=== PATIENT | female | born 1970 | race Caucasian/White ===

== ENCOUNTER 2021-12-13 21:23 | Inpatient (IN) | payer OTHER ==
[2021-12-13] MEDS ORDERED: ONDANSETRON 4 MG/2 ML VIAL IVP STA (22:42)
[2021-12-13] MEDS ORDERED: KETOROLAC 15 MG/ML 1 ML VIAL IVP STA (22:42)
[2021-12-13] MEDS ORDERED: diphenhydrAMINE 50 MG/ML 1 ML VIAL IVP STA (22:43)
[2021-12-13] MEDS ORDERED: SODIUM CHLORIDE 0.9% 1,000 ML IV STA (22:43)
[2021-12-13 23:08] LABS: Basophils % (A) 1 %; Eosinophils # (A) 0.3 k/uL (0-0.7); Eosinophils % (A) 5 %; HCT 37.5 % (34.0-46.0); HGB 11.3 gm/dL (11.4-16.0); Hypochromasia Moderate; Lymphocytes # (A) 1.4 k/uL (1.0-4.8); Lymphocytes % (A) 25 %; MCH 21.3 pg (25.0-35.0); MCHC 30.2 g/dL (31.0-37.0); MCV 70.4 fL (80.0-100.0); Mean Platelet Volume 6.8; Microcytosis Moderate; Monocytes # (A) 0.3 k/uL (0-1.0); Monocytes % (A) 6 %; Neutrophils # (A) 3.3 k/uL (1.3-7.7); Neutrophils % (A) 61 %; Platelet Count 249 k/uL (150-450); RBC 5.33 m/uL (3.80-5.40); RDW 15.5 % (11.5-15.5); WBC 5.5 k/uL (3.8-10.6)
--- NOTE | 2021-12-13 23:22 | XR ---
EXAMINATION TYPE: XR KUB DATE OF EXAM: 12/13/2021 COMPARISON: NONE HISTORY: Flank pain TECHNIQUE: 2 views FINDINGS: 2 views upright show no sign of intestinal obstruction or pneumoperitoneum. Fecal pattern i s normal. Lung bases are clear. There are no pathologic calcifications or kidneys. IMPRESSION: Nonacute abdomen.
[2021-12-13 23:47] LABS: Albumin 4.3 g/dL (3.5-5.0); Calcium 8.8 mg/dL (8.4-10.2); Total Bilirubin 0.7 mg/dL (0.2-1.3); Total Protein 7.7 g/dL (6.3-8.2)
[2021-12-13 23:53] LABS: Appearance,Urine Turbid (Clear); Bacteria,Urine Many /hpf; Bilirubin,Urine Negative (Negative); Blood,Urine Large (Negative); Color,Urine Yellow; Glucose,Urine (UA) Negative (Negative); Hyaline Casts,Urine 15 /lpf (0-2); Ketones,Urine Trace (Negative); Leukocyte Esterase,Urine Large (Negative); Mucus,Urine Many /hpf; Nitrite,Urine Negative (Negative); PH, Urine 5.5 (5.0-8.0); Protein,Urine 1+ (Negative); RBC,Urine 32 /hpf (0-5); Specific Gravity,Urine 1.034 (1.001-1.035); Squamous Epithelial Cell,Urine 22 /hpf (0-4); WBC,Urine 112 /hpf (0-5)
[2021-12-13 23:56] LABS: Amphetamine Screen,Urine Detected (NotDetected); Barbiturate Screen,Urine Not Detected (NotDetected); Benzodiazepines Screen,Urine Not Detected (NotDetected); Cocaine Screen,Urine Not Detected (NotDetected); Methadone Screen, Urine Not Detected (NotDetected); Opiate Screen,Urine Not Detected (NotDetected); Oxycodone Screen, Urine Not Detected (NotDetected); Phencyclidine Screen,Urine Not Detected (NotDetected); Tricyclic Antidepressant,Urine Not Detected (NotDetected); Urn Cannabinoid Scrn Not Detected (NotDetected)
--- NOTE | 2021-12-14 00:18 | US ---
EXAMINATION TYPE: US kidneys/renal and bladder DATE OF EXAM: 12/13/2021 COMPARISON: XR KUB 12/13/21 CLINICAL HISTORY: evaluate for hydronephrosis. Flank pain EXAM MEASUREMENTS: Right Kidney: 10.4 x 5.3 x 4.6 cm Left Kidney: 10.5 x 5.2 x 4.3 cm Right Kidney: Limited visualization; appears wnl Left Kidney: Limited visualization; appears wnl Bladder: Bladder area noted IMPRESSION: No evidence of renal mass or obstruction. No perinephric fluid. Urinary bladder not well evaluated. Bladder was apparently empty during the exam.
[2021-12-14 00:19] LABS: Potassium 4.3 mmol/L (3.5-5.1)
[2021-12-14] MEDS ORDERED: MORPHINE SULFATE 4 MG/ML SYRINGE IVP STA (00:24)
[2021-12-14] MEDS ORDERED: SODIUM CHLORIDE 0.9% 1,000 ML IV STA (00:46)
--- NOTE | 2021-12-14 00:46 | ED ---
General Adult HPI - General Chief complaint: Psychiatric Symptoms Stated complaint: Kidney Stones, Mental health Time Seen by Provider: 12/13/21 22:29 Source: patient, RN notes reviewed, old records reviewed Mode of arrival: ambulatory Limitations: no limitations - History of Present Illness Initial comments: Patient is a 51-year-old female presents emergency Department for kidney stones as well as mental health evaluation. Patient states she is a known history of kidney stones. Is complaining of left-sided flank pain. Complaining of darkened urine. Denies any chest pain, shortness of breath. Endorses occasional nausea. Denies any emesis. Denies any diarrhea or constipation. Denies being . States she does have a history of kidney stones in the past. Patient is also complaining of suicidal ideations. She states she has been recently made homeless. Has been having thoughts form to kill herself. Denies any homicidal ideations, attempts, plans. Denies any suicidal attempts, plans. Denies any visual or auditory hallucinations. Does have a psychiatric history and states she is compliant with her medications. [place] and has little support structure locally. Is requesting to speak with psychiatry. - Related Data Allergies Allergy/AdvReac Type Severity Reaction Status Date / Time codeine Allergy Rash/Hives Verified 12/13/21 21:30 Review of Systems ROS Statement: Those systems with pertinent positive or pertinent negative responses have been documented in the HPI. Review of Systems: CONST: Denies fever EYES: Denies blurry vision ENT: Denies nasal congestion C/V: Denies Chest pain RESP: Denies shortness of breath GI: Endorses abdominal pain : Denies dysuria SKIN: Denies rash. MSK: Denies joint pain. NEURO: Denies headache ROS Other: All systems not noted in ROS Statement are negative. Past Medical History Additional Past Medical History / Comment(s): kidney stones History of Any Multi-Drug Resistant Organisms: None Reported Past Surgical History: No Surgical Hx Reported Past Psychological History: Depression Smoking Status: Never smoker Past Alcohol Use History: None Reported Past Drug Use History: Methamphetamine General Exam - General Exam Comments Initial Comments: General: Appears in no acute distress. HEAD: Normal with no signs of head trauma. EYES: PERRLA, EOMI, conjunctiva normal, no discharge. ENT: Hearing grossly intact, normal oropharynx. RESPIRATORY: Clear breath sounds bilaterally. No wheezes, rales, or rhonchi. C/V: Regular rate and rhythm. S1 and S2 auscultated, no edema, peripheral pulses 2+ and intact throughout ABD: soft, nondistended. patient's mother tender to palpation in the left flank. no cva tenderness to percussion. no rebound tenderness. no peritoneal signs. no guarding. EXT: Normal range of motion, no obvious deformity SKIN: No rashes or lesions observed on exposed skin. NEURO: Alert and oriented 4. Limitations: no limitations Course Vital Signs 12/13/21 12/14/21 21:25 00:21 Temperature 98.2 F Pulse Rate 109 H 86 Respiratory 20 16 Rate Blood Pressure 171/111 143/82 O2 Sat by Pulse 100 98 Oximetry Medical Decision Making - Medical Decision Making Based on the patient's presentation and physical exam, I'm concerned for was likely to be kidney stones that she does have a history of these. We will obtain abdominal laboratory studies. Due to her suicidal ideations, she'll be placed in green scrubs, suicide precautions as well as that order were placed. BAT was obtained and was found to be 0. UDS is ordered. She'll be symptomatically treat with a GI cocktail as well as IV fluids. Patient was in agreement with this plan. We'll obtain an ultrasound as well as abdominal x- ray. Abdominal x-ray reveals no acute process. Ultrasound of the kidneys as well as bladder revealed a recently in the bladder. No signs of hydronephrosis or obstruction, no perinephric fluid. Laboratory studies are remarkable for a mild microcytic anemia with hemoglobin 11.3. Creatinine is 0.94. Patient is not . UDS is positive for amphetamines. Urinalysis is somewhat cont aminated, however does revealed turbid urine with large amount of blood which is likely secondary to kidney stones that may be actively passing. There is leukocytosis as well with many bacteria. On reevaluation, patient is continuing to have abdominal pain. I signed this is likely secondary to her kidney stones. She did admit that she was seen earlier today at a different emergency department. They did CT her abdomen then, and she states that she was told "there are multiple kidney stones in both my kidneys" and that "there is nothing they can do about them." She has required lithotripsy in the past. I expect her that due to the findings on her urinalysis, as well as her history, I do believe the safest option is admission to observation, where she can receive IV analgesia as well as IV fluids and antibiotics. Psychiatry can evaluate the patient on inpatient basis. She was in agreement with this plan. I spoke with the admitting team under Dr. Johnson who accepted the patient. Patient was therefore admitted in stable condition. Suicide precautions and sitter were ordered.IV fluids will be continued. Patient was started on IV Rocephin. - Lab Data Result diagrams: 12/13/21 22:55 12/13/21 22:55 Lab Results 12/13/21 12/13/21 12/13/21 Range/Units 22:55 22:55 22:55 WBC 5.5 (3.8-10.6) k/uL RBC 5.33 (3.80-5.40) m/uL Hgb 11.3 L (11.4-16.0) gm/dL Hct 37.5 (34.0-46.0) % MCV 70.4 L (80.0-100.0) fL MCH 21.3 L (25.0-35.0) pg MCHC 30.2 L (31.0-37.0) g/dL RDW 15.5 (11.5-15.5) % Plt Count 249 (150-450) k/uL MPV 6.8 Neutrophils % 61 % Lymphocytes % 25 % Monocytes % 6 % Eosinophils % 5 % Basophils % 1 % Neutrophils # 3.3 (1.3-7.7) k/uL Lymphocytes # 1.4 (1.0-4.8) k/uL Monocytes # 0.3 (0-1.0) k/uL Eosinophils # 0.3 (0-0.7) k/uL Basophils # 0.0 (0-0.2) k/uL Hypochromasia Moderate Microcytosis Moderate Sodium (137-145) mmol/L Potassium (3.5-5.1) mmol/L Chloride (98-107) mmol/L Carbon Dioxide (22-30) mmol/L Anion Gap mmol/L BUN (7-17) mg/dL Creatinine (0.52-1.04) mg/dL Est GFR (CKD-EPI)AfAm (>60 ml/min/1.73 sqM) Est GFR (CKD-EPI)NonAf (>60 ml/min/1.73 sqM) Glucose (74-99) mg/dL Calcium (8.4-10.2) mg/dL Total Bilirubin (0.2-1.3) mg/dL AST (14-36) U/L ALT (4-34) U/L Alkaline Phosphatase (38-126) U/L Total Protein (6.3-8.2) g/dL Albumin (3.5-5.0) g/dL Amylase (30-110) U/L Lipase (23-300) U/L HCG, Qual Urine Color Yellow Urine Appearance Turbid H (Clear) Urine pH 5.5 (5.0-8.0) Ur Specific [place] 1.034 (1.001-1.035) Urine Protein 1+ H (Negative) Urine Glucose (UA) Negative (Negative) Urine Ketones Trace H (Negative) Urine Blood Large H (Negative) Urine Nitrite Negative (Negative) Urine Bilirubin Negative (Negative) Urine Urobilinogen 3.0 (<2.0) mg/dL Ur Leukocyte Esterase Large H (Negative) Urine RBC 32 H (0-5) /hpf Urine WBC 112 H (0-5) /hpf Ur Squamous Epith Cells 22 H (0-4) /hpf Urine Bacteria Many H (None) /hpf Hyaline Casts 15 H (0-2) /lpf Urine Mucus Many H (None) /hpf Urine Opiates Screen Not Detected (NotDetected) Ur Oxycodone Screen Not Detected (NotDetected) Urine Methadone Screen Not Detected (NotDetected) Ur Propoxyphene Screen Not Detected (NotDetected) Ur Barbiturates Screen Not Detected (NotDetected) U Tricyclic Antidepress Not Detected (NotDetected) Ur Phencyclidine Scrn Not Detected (NotDetected) Ur Amphetamines Screen Detected H (NotDetected) U Methamphetamines Scrn Detected H (NotDetected) U Benzodiazepines Scrn Not Detected (NotDetected) Urine Cocaine Screen Not Detected (NotDetected) U Marijuana (THC) Screen Not Detected (NotDetected) 12/13/21 12/13/21 Range/Units 22:55 23:07 WBC (3.8-10.6) k/uL RBC (3.80-5.40) m/uL Hgb (11.4-16.0) gm/dL Hct (34.0-46.0) % MCV (80.0-100.0) fL MCH (25.0-35.0) pg MCHC (31.0-37.0) g/dL RDW (11.5-15.5) % Plt Count (150-450) k/uL MPV Neutrophils % % Lymphocytes % % Monocytes % % Eosinophils % % Basophils % % Neutrophils # (1.3-7.7) k/uL Lymphocytes # (1.0-4.8) k/uL Monocytes # (0-1.0) k/uL Eosinophils # (0-0.7) k/uL Basophils # (0-0.2) k/uL Hypochromasia Microcytosis Sodium 139 (137-145) mmol/L Potassium 4.3 (3.5-5.1) mmol/L Chloride 106 (98-107) mmol/L Carbon Dioxide 23 (22-30) mmol/L Anion Gap 10 mmol/L BUN 19 H (7-17) mg/dL Creatinine 0.94 (0.52-1.04) mg/dL Est GFR (CKD-EPI)AfAm 81 (>60 ml/min/1.73 sqM) Est GFR (CKD-EPI)NonAf 70 (>60 ml/min/1.73 sqM) Glucose 124 H (74-99) mg/dL Calcium 8.8 (8.4-10.2) mg/dL Total Bilirubin 0.7 (0.2-1.3) mg/dL AST 35 (14-36) U/L ALT 25 (4-34) U/L Alkaline Phosphatase 105 (38-126) U/L Total Protein 7.7 (6.3-8.2) g/dL Albumin 4.3 (3.5-5.0) g/dL Amylase 56 (30-110) U/L Lipase 85 (23-300) U/L HCG, Qual Not Detected Urine Color Urine Appearance (Clear) Urine pH (5.0-8.0) Ur Specific [place] (1.001-1.035) Urine Protein (Negative) Urine Glucose (UA) (Negative) Urine Ketones (Negative) Urine Blood (Negative) Urine Nitrite (Negative) Urine Bilirubin (Negative) Urine Urobilinogen (<2.0) mg/dL Ur Leukocyte Esterase (Negative) Urine RBC (0-5) /hpf Urine WBC (0-5) /hpf Ur Squamous Epith Cells (0-4) /hpf Urine Bacteria (None) /hpf Hyaline Casts (0-2) /lpf Urine Mucus (None) /hpf Urine Opiates Screen (NotDetected) Ur Oxycodone Screen (NotDetected) Urine Methadone Screen (NotDetected) Ur Propoxyphene Screen (NotDetected) Ur Barbiturates Screen (NotDetected) U Tricyclic Antidepress (NotDetected) Ur Phencyclidine Scrn (NotDetected) Ur Amphetamines Screen (NotDetected) U Methamphetamines Scrn (NotDetected) U Benzodiazepines Scrn (NotDetected) Urine Cocaine Screen (NotDetected) U Marijuana (THC) Screen (NotDetected) Disposition Clinical Impression: Kidney stones, UTI (urinary tract infection), Abdominal pain, Suicidal ideations, Encounter for psychological evaluation Disposition: ADMITTED IP TO THIS [facility] Condition: Stable Is patient prescribed a controlled substance at d/c from ED?: No Referrals: None,Stated [Primary Care Provider] - 1-2 days
[2021-12-14] MEDS ORDERED: NALOXONE 0.4 MG/ML 1 ML VIAL IV PRN (00:49)
--- NOTE | 2021-12-14 02:32 | P.HPIM ---
History of Present Illness H&P Date: 12/14/21 Chief Complaint: Severe left flank pain 51-year-old female with history of kidney stones Patient comes in complaining of severe bilateral flank pain worse on the left side she has history of kidney stones a few days ago she was diagnosed with new bilateral kidney stones with no obstruction no obstructive uropathy. She reports hematuria denies any fevers or chills reports very sharp severe pain 10 out of 10 over the left flank radiating to the groin patient also claims that she is homeless she moved recently from [place] to stay with friends who has kicked her out since then she's been homeless with poor access to care doesn't take any medications she does have history of depression and anxiety and PTSD however she's been off medications for a while. Otherwise she denies any tobacco smoking or heavy alcohol use. She admits to methamphetamine last was a few days ago Patient went to a different facility a few days ago [facility] where imaging was done confirmed bilateral kidney stones no obstructive uropathy in the ED blood work showed microcytic anemia. Urine analysis was a contaminated sample Otherwise patient denies any nausea vomiting denies any chest pain or trouble breathing She was getting very frustrated with her quality of life and today presented to the ED complaining of depression and suicidal ideation Review of Systems Pertinent positives as noted in HPI. All other systems were reviewed and are negative Past Medical History Additional Past Medical History / Comment(s): kidney stones History of Any Multi-Drug Resistant Organisms: None Reported Past Surgical History: No Surgical Hx Reported Past Psychological History: Depression Smoking Status: Never smoker Past Alcohol Use History: None Reported Past Drug Use History: Methamphetamine Medications and Allergies Allergies Allergy/AdvReac Type Severity Reaction Status Date / Time codeine Allergy Rash/Hives Verified 12/13/21 21:30 Physical Exam Vitals: Vital Signs Temp Pulse Resp BP Pulse Ox 12/14/21 00:21 86 16 143/82 98 12/13/21 21:25 98.2 F 109 H 20 171/111 100 Intake and Output 12/13/21 12/13/21 12/14/21 14:59 22:59 06:59 Other: Weight 90.718 kg Constitutional: No acute distress, conversant, pleasant Eyes: Anicteric sclerae, moist conjunctiva, Pupils equal round reactive to light ENMT: NC/AT Oropharynx clear, no erythema, or exudates Neck: Supple, no masses, or JVD No carotid bruits No thyromegaly Lungs: Clear to auscultation Clear to percussion Normal respiratory effort, no accessory muscle use Cardiovascular: Heart regular in rate and rhythm, No murmurs, gallops, or rubs No peripheral edema Abdominal: Soft, tenderness to tapping of the left costovertebral angle Nontender, no guarding, rebound or rigidity Abdomen moving with respiration Normoactive bowel sounds No hepatomegaly, No splenomegaly No palpable mass No abdominal wall hernia noted Skin: Normal temperature, tone, texture, turgor No induration No subcutaneous nodules No rash, lesions No ulcers Extremities: No digital cyanosis No clubbing Pedal pulses intact and symmetrical Radial pulses intact and symmetrical No calf tenderness Psychiatric: Alert and oriented to person, place and time Neuro Muscles Strength 5/5 in all 4 extremities Sensation to light touch grossly present throughout Cranial nerves II-XII grossly intact No focal sensory deficits Lymphatics: no palpable cervical or supraclavicular , or inguinal lymph nodes Results CBC & Chem 7: 12/13/21 22:55 12/13/21 22:55 Labs: Abnormal Lab Results - Last 24 Hours (Table) 12/13/21 12/13/21 12/13/21 Range/Units 22:55 22:55 22:55 Hgb 11.3 L (11.4-16.0) gm/dL MCV 70.4 L (80.0-100.0) fL MCH 21.3 L (25.0-35.0) pg MCHC 30.2 L (31.0-37.0) g/dL BUN (7-17) mg/dL Glucose (74-99) mg/dL Urine Appearance Turbid H (Clear) Urine Protein 1+ H (Negative) Urine Ketones Trace H (Negative) Urine Blood Large H (Negative) Ur Leukocyte Esterase Large H (Negative) Urine RBC 32 H (0-5) /hpf Urine WBC 112 H (0-5) /hpf Ur Squamous Epith Cells 22 H (0-4) /hpf Urine Bacteria Many H (None) /hpf Hyaline Casts 15 H (0-2) /lpf Urine Mucus Many H (None) /hpf Ur Amphetamines Screen Detected H (NotDetected) U Methamphetamines Scrn Detected H (NotDetected) 04/04/22 Range/Units 22:55 Hgb (11.4-16.0) gm/dL MCV (80.0-100.0) fL MCH (25.0-35.0) pg MCHC (31.0-37.0) g/dL BUN 19 H (7-17) mg/dL Glucose 124 H (74-99) mg/dL Urine Appearance (Clear) Urine Protein (Negative) Urine Ketones (Negative) Urine Blood (Negative) Ur Leukocyte Esterase (Negative) Urine RBC (0-5) /hpf Urine WBC (0-5) /hpf Ur Squamous Epith Cells (0-4) /hpf Urine Bacteria (None) /hpf Hyaline Casts (0-2) /lpf Urine Mucus (None) /hpf Ur Amphetamines Screen (NotDetected) U Methamphetamines Scrn (NotDetected) Assessment and Plan Assessment: Acute abdominal pain secondary to left renal stones Urine straining Pain control IV fluid hydration with normal saline Urology consult Pain control with opiates and NSAIDs UA reviewed contaminated sample follow-up cultures Computed tomography scan done at another facility showed bilateral kidney stones with no obstructive uropathy Follow-up renal function Microcytic anemia Patient denies any GI bleeding Admits to occasional hematuria Continue to monitor hemoglobin Iron studies Depression and suicidal ideation Suicide precautions Psych consultation and evaluation Patient currently off medications Psych evaluation DVT prophylaxis mechanical Full code Anticipated length of stay less than 2 midnights
[2021-12-14] MEDS: HEPARIN SODIUM,PORCINE/PF 5,000 UNIT/0.5 ML SYRINGE SQ SCH ×2 (08:06→18:06)
[2021-12-14] MEDS: MORPHINE SULFATE 4 MG/ML SYRINGE IVP PRN ×2 (08:07→14:21)
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
[2021-12-14] MEDS: ONDANSETRON 4 MG/2 ML VIAL IVP PRN (14:20)
[2021-12-14] MEDS ORDERED: ACETAMINOPHEN TAB 325 MG TAB PO PRN (19:50)
[2021-12-14] MEDS: QUEtiapine 50 MG TAB PO SCH (20:00)
[2021-12-15] MEDS: HEPARIN SODIUM,PORCINE/PF 5,000 UNIT/0.5 ML SYRINGE SQ SCH ×3 (00:30→16:22)
[2021-12-15] MEDS: CITALOPRAM HYDROBROMIDE 10 MG TAB PO SCH (09:10)
[2021-12-15 10:22] LABS: HCT 35.3 % (37.2-46.3); HGB 10.2 g/dL (12.0-15.0); MCH 20.3 pg (27.0-32.0); MCHC 28.9 g/dL (32.0-37.0); MCV 70.2 fL (80.0-97.0); Mean Platelet Volume 10.8 fL (9.5-12.2); NRBC Per 100 WBC 0 /100 WBCS (0.0-0.0); Platelet Count 264 X 10*3/uL (140-440); RBC 5.03 X 10*6/uL (4.10-5.20); RDW 16.5 % (11.5-14.5)
[2021-12-15 10:30] LABS: African American GFR (CKD) 85.2 (60.0-200.0); Albumin 3.8 g/dL (3.8-4.9); Albumin/Globulin Ratio 1.46 (1.60-3.17); Anion Gap 10.4 mmol/L (10.00-18.00); BUN/Creat Ratio 15.56 Ratio (12.00-20.00); Carbon Dioxide 25.6 mmol/L (20.0-27.5); Globulin 2.6 g/dL (1.6-3.3); Non-African American GFR(CKD) 73.5 (60.0-200.0); Potassium 4.6 mmol/L (3.5-5.5); Total Bilirubin 0.4 mg/dL (0.30-1.20); Total Protein 6.4 g/dL (6.2-8.2)
[2021-12-15 12:03] LABS: Basophils # (A) 0.03 X 10*3/uL (0.00-0.10); Basophils % (A) 0.7 %; Eosinophils % (A) 4.8 %; Immature Grans, Automated 0.2 %; Lymphocytes % (A) 45.2 %; Microcytosis (M) 2+; Monocytes # (A) 0.39 X 10*3/uL (0.20-1.00); Monocytes % (A) 9.3 %; Neutrophils # (A) 1.67 X 10*3/uL (1.80-7.70); Neutrophils % (A) 39.8 %
--- NOTE | 2021-12-15 13:11 | P.PN ---
Progress Note - Text Progress Note Date: 12/15/21 Interval History: Patient was seen resting in bed and was directable and agreeable to speak with this provider in her room. Present in the room as the patient's sitter. Currently, the patient reports that she just feels tired. She continues to report elevated depression with symptoms of low energy, low motivation, hopelessness, and suicidal ideation. She continues to have a desire to hurt herself. She denies any homicidal ideation, intention, and/or plan. She denies any auditory or visual hallucinations but does admit to a negative internal dialogue. She has been adherent with her medications but reports that the Seroquel is making her feel little bit tired. She denies any issues regarding her sleep or her appetite. Mental Status Exam: General Appearance: Patient appears to be stated age is alert, directable, and cooperative. She is dressed in hospital gown. Behavior: Patient is calmly seated without any agitated behavior. Speech: Patient's speech is fluent and nonpressured. Mood/Affect: Mood is feeling depressed. Affect is congruent, constricted, and withdrawn. Suicidality/Homicidality: Patient endorses suicidal ideation however denies any homicidal ideation, intention, and/or plan. Perceptions: Patient denies any visual hallucinations and denies any auditory hallucinations Though content/process: There is no evidence of any delusional thought content and thought process is linear but dysphoric. Memory and concentration: AOX3, grossly intact for the purposes of this session Judgment and insight: Improving mildly Vital Signs Temp 97.9 F 12/15/21 04:09 Pulse 71 12/15/21 04:09 Resp 18 12/15/21 04:09 BP 101/64 12/15/21 04:09 Pulse Ox 94 L 12/15/21 04:09 Intake & Output 12/14/21 12/15/21 12/15/21 18:59 06:59 18:59 Intake Total 200 650 Balance 200 650 Weight 90.718 kg Intake: Intake, IV Titration 50 Amount cefTRIAXone 1 gm In 50 Sodium Chloride 0.9% 50 ml @ 100 mls/hr IVPB Q24H [facility] Rx#:[id number] Oral 200 600 Other: Voiding Method Toilet Toilet # Voids 2 Laboratory Results - Last 24 Hours 12/15/21 12/15/21 06:55 06:55 WBC 4.20 L RBC 5.03 Hgb 10.2 L Hct 35.3 L MCV 70.2 L MCH 20.3 L MCHC 28.9 L RDW 16.5 H Plt Count 264 Plt Count Comment Adequate MPV 10.8 Immature Gran % (Auto) 0.2 Absolute Nucleated RBC 0 Neutrophils % 39.8 Lymphocytes % 45.2 Monocytes % 9.3 Eosinophils % 4.8 Basophils % 0.7 Immature Gran # 0.01 Neutrophils # 1.67 L Lymphocytes # 1.90 Monocytes # 0.39 Eosinophils # 0.20 Basophils # 0.03 NRBC/100 WBC Diff 0 Microcytosis (manual) 2+ Sodium 143 Potassium 4.6 Chloride 107 Carbon Dioxide 25.6 Anion Gap 10.40 BUN 14.0 Creatinine 0.9 Est GFR (CKD-EPI)AfAm 85.2 Est GFR (CKD-EPI)NonAf 73.5 BUN/Creatinine Ratio 15.56 Glucose 100 Calcium 9.0 Total Bilirubin 0.40 AST 28 ALT 36 Alkaline Phosphatase 125 Total Protein 6.4 Albumin 3.8 Globulin 2.6 Albumin/Globulin Ratio 1.46 L Assessment Hematuria Major depressive disorder, recurrent, severe Posttraumatic stress disorder Methamphetamine abuse Plan: -Continue your medical management -At this time patient DOES meet criteria for inpatient psychiatric admission. -Would recommend the following medication changes/additions: Continue Seroquel 50 mg by mouth at bedtime for mood augmentation and insomnia Continue Celexa 10 mg by mouth daily for depression/anxiety -Continue 1:1 sitter for safety -Cannot leave AMA at this time. Patient will need a petition and certification if attempting to leave AMA. -Psychiatry will sign off at this time. We will further evaluate and treat the patient when she is admitted to the psychiatric unit. Please consult us or call us with any questions or concerns. -When medically stable, patient is eligible for transfer to a psych bed when available.
--- NOTE | 2021-12-15 13:34 | P.PN ---
Subjective Patient was evaluated bedside today denies any new symptomatology. Pain is controlled with when necessary medications states that she has been sleeping. One-to-one sitter present at bedside. Case discussed with RN. Pending evaluation by urology. Objective - Vital Signs Vital signs: Vital Signs Temp 97.9 F 12/15/21 04:09 Pulse 71 12/15/21 04:09 Resp 18 12/15/21 04:09 BP 101/64 12/15/21 04:09 Pulse Ox 94 L 12/15/21 04:09 Intake & Output 12/14/21 12/15/21 12/15/21 18:59 06:59 18:59 Intake Total 200 650 Balance 200 650 Weight 90.718 kg Intake: Intake, IV Titration 50 Amount cefTRIAXone 1 gm In 50 Sodium Chloride 0.9% 50 ml @ 100 mls/hr IVPB Q24H [facility] Rx#:[id number] Oral 200 600 Other: Voiding Method Toilet Toilet # Voids 2 - Exam Constitutional: No acute distress, conversant, pleasant Eyes: Anicteric sclerae, moist conjunctiva, Pupils equal round reactive to light ENMT: NC/AT Oropharynx clear, no erythema, or exudates Neck: Supple, no masses, or JVD No carotid bruits No thyromegaly Lungs: Clear to auscultation Clear to percussion Normal respiratory effort, no accessory muscle use Cardiovascular: Heart regular in rate and rhythm, No murmurs, gallops, or rubs No peripheral edema Abdominal: Soft, tenderness to tapping of the left costovertebral angle Nontender, no guarding, rebound or rigidity Abdomen moving with respiration Normoactive bowel sounds No hepatomegaly, No splenomegaly No palpable mass No abdominal wall hernia noted Skin: Normal temperature, tone, texture, turgor No induration No subcutaneous nodules No rash, lesions No ulcers Extremities: No digital cyanosis No clubbing Pedal pulses intact and symmetrical Radial pulses intact and symmetrical No calf tenderness Psychiatric: Alert and oriented to person, place and time Neuro Muscles Strength 5/5 in all 4 extremities Sensation to light touch grossly present throughout Cranial nerves II-XII grossly intact No focal sensory deficits Lymphatics: no palpable cervical or supraclavicular , or inguinal lymph nodes - Labs CBC & Chem 7: 12/15/21 06:55 12/15/21 06:55 Labs: Abnormal Lab Results - Last 24 Hours (Table) 12/15/21 12/15/21 Range/Units 06:55 06:55 WBC 4.20 L (4.50-10.00) X 10*3/uL Hgb 10.2 L (12.0-15.0) g/dL Hct 35.3 L (37.2-46.3) % MCV 70.2 L (80.0-97.0) fL MCH 20.3 L (27.0-32.0) pg MCHC 28.9 L (32.0-37.0) g/dL RDW 16.5 H (11.5-14.5) % Neutrophils # 1.67 L (1.80-7.70) X 10*3/uL Albumin/Globulin Ratio 1.46 L (1.60-3.17) g/dL Microbiology - Last 24 Hours (Table) 12/13/21 22:55 Urine Culture - Final Urine,Voided Assessment and Plan Assessment: Assessment: #1 intractable abdominal pain secondary to nephrolithiasis #2 active suicidal ideation/depression #3 microcytic anemia #4 urinary tract infection Plan: -Admit to medicine for close monitoring -Suicidal precautions/one-to-one sitter -Psychiatry on board recommending inpatient psychiatric unit once patient is medically stable -Pending evaluation by urology -Urine culture reviewed continue with IV Rocephin -DVT prophylaxis Disposition despite discharge once evaluated by urology and cleared. Patient will be discharged to inpatient psych. Patient cannot leave AMA as per psych.
--- NOTE | 2021-12-15 14:09 | P.GSCN ---
History of Present Illness Consult date: 12/15/21 Reason for Consult: Left-sided kidney stones History of present illness: This is a 51-year-old female with history of recurrent kidney stones area she initially presented to [facility] with bilateral flank pain, CT was obtained at that time showed bilateral nonobstructing stone, and review of imaging there appears to be also a 6 mm stone at the left UVJ. She presented back to the hospital with left-sided flank pain. Ultrasound showed no hydronephrosis, but she's been having persistent pain since hospital admission.. Previous history of stone treated with ureteroscopy with holmium laser. Denies any dysuria, , nausea or vomiting. But indicated she's been having gross hematuria with the pain. Urine culture is a contaminant, but she's been on antibiotics since hospital admission. Review of Systems - Constitutional Denies chills, Denies fever - Cardiovascular Denies chest pain, Denies shortness of breath - Respiratory Denies cough, Denies 7 - Gastrointestinal Reports abdominal pain - Genitourinary Genitourinary: Reports flank pain, Reports hematuria, Denies dysuria - Neurological Denies headaches, Denies syncope - Psychiatric Reports anxiety Past Medical History Past Medical History: Hypertension, Renal Disease Additional Past Medical History / Comment(s): Past kidney stones, UTIs, gastric ulcer/hematemesis as a child, low back pain worse with standing. History of Any Multi-Drug Resistant Organisms: None Reported Past Surgical History: Orthopedic Surgery, Tubal Ligation Additional Past Surgical History / Comment(s): Surgery for kidney stones, L knee arthroscopic surgery Past Anesthesia/Blood Transfusion Reactions: No Reported Reaction Smoking Status: Never smoker - Past Family History Mother Family Medical History: COPD Additional Family Medical History / Comment(s): Mother is living, pt does not speak much to her. Father Additional Family Medical History / Comment(s): Father in a MVA. Medications and Allergies Home Medications Medication Instructions Recorded Confirmed Type No Known Home Medications 12/14/21 12/14/21 History Allergies Allergy/AdvReac Type Severity Reaction Status Date / Time codeine Allergy Rash/Hives Verified 12/14/21 06:28 Surgical - Exam Vital Signs Temp Pulse Resp BP Pulse Ox 98.2 F 109 H 20 171/111 100 12/13/21 21:25 12/13/21 21:25 12/13/21 21:25 12/13/21 21:25 12/13/21 21:25 - General no distress, moderate pain - Eyes normal ocular movement, no pale - ENT normal nares, normal mucosa - Respiratory normal expansion, normal respiratory effort - Abdomen Abdomen: soft, non tender - Psychiatric oriented to time, oriented to person, oriented to place Results - Labs 12/15/21 06:55 12/15/21 06:55 Abnormal Lab Results - Last 24 Hours (Table) 12/15/21 12/15/21 Range/Units 06:55 06:55 WBC 4.20 L (4.50-10.00) X 10*3/uL Hgb 10.2 L (12.0-15.0) g/dL Hct 35.3 L (37.2-46.3) % MCV 70.2 L (80.0-97.0) fL MCH 20.3 L (27.0-32.0) pg MCHC 28.9 L (32.0-37.0) g/dL RDW 16.5 H (11.5-14.5) % Neutrophils # 1.67 L (1.80-7.70) X 10*3/uL Albumin/Globulin Ratio 1.46 L (1.60-3.17) g/dL Microbiology - Last 24 Hours (Table) 12/13/21 22:55 Urine Culture - Final Urine,Voided Diabetes panel 12/15/21 Range/Units 06:55 Sodium 143 (135-145) mmol/L Potassium 4.6 (3.5-5.5) mmol/L Chloride 107 (96-109) mmol/L Carbon Dioxide 25.6 (20.0-27.5) mmol/L BUN 14.0 (9.0-27.0) mg/dL Creatinine 0.9 (0.6-1.5) mg/dL Glucose 100 (70-110) mg/dL Calcium 9.0 (8.7-10.3) mg/dL AST 28 (13-35) U/L ALT 36 (8-44) U/L Alkaline Phosphatase 125 (41-126) U/L Total Protein 6.4 (6.2-8.2) g/dL Albumin 3.8 (3.8-4.9) g/dL Calcium panel 12/15/21 Range/Units 06:55 Calcium 9.0 (8.7-10.3) mg/dL Albumin 3.8 (3.8-4.9) g/dL Pituitary panel 12/15/21 Range/Units 06:55 Sodium 143 (135-145) mmol/L Potassium 4.6 (3.5-5.5) mmol/L Chloride 107 (96-109) mmol/L Carbon Dioxide 25.6 (20.0-27.5) mmol/L BUN 14.0 (9.0-27.0) mg/dL Creatinine 0.9 (0.6-1.5) mg/dL Glucose 100 (70-110) mg/dL Calcium 9.0 (8.7-10.3) mg/dL Adrenal panel 12/15/21 Range/Units 06:55 Sodium 143 (135-145) mmol/L Potassium 4.6 (3.5-5.5) mmol/L Chloride 107 (96-109) mmol/L Carbon Dioxide 25.6 (20.0-27.5) mmol/L BUN 14.0 (9.0-27.0) mg/dL Creatinine 0.9 (0.6-1.5) mg/dL Glucose 100 (70-110) mg/dL Calcium 9.0 (8.7-10.3) mg/dL Total Bilirubin 0.40 (0.30-1.20) mg/dL AST 28 (13-35) U/L ALT 36 (8-44) U/L Alkaline Phosphatase 125 (41-126) U/L Total Protein 6.4 (6.2-8.2) g/dL Albumin 3.8 (3.8-4.9) g/dL Assessment and Plan Assessment: This is a 51-year-old female admitted to the hospital with left-sided flank pain and psychiatrist also consulted for major depression. Has been having persistent flank pain since admission. Discussed given her persistent pain the option of left-sided ureteroscopy with holmium laser. Discussed the risk and the benefit of the procedure in detail. She is agreeable to proceed. -Nothing by mouth past midnight -OR tomorrow for left-sided ureteroscopy with holmium laser lithotripsy, stone basketing and stent insertion
[2021-12-15] MEDS: MORPHINE SULFATE 4 MG/ML SYRINGE IVP PRN (20:04)
[2021-12-15] MEDS: QUEtiapine 50 MG TAB PO SCH (20:05)
[2021-12-16] MEDS: HEPARIN SODIUM,PORCINE/PF 5,000 UNIT/0.5 ML SYRINGE SQ SCH ×3 (01:06→19:47)
[2021-12-16] MEDS ORDERED: SCOPOLAMINE 1 MG/72 HR PATCH TRANSDERM ONE ×2 (06:06→16:09)
[2021-12-16] MEDS ORDERED: ONDANSETRON 4 MG/2 ML VIAL IVP ONE ×2 (06:06→15:31)
[2021-12-16] MEDS ORDERED: DEXAMETHASONE SOD PHOSPHATE 4 MG/ML 1 ML VIAL IV ONE (06:06)
[2021-12-16] MEDS ORDERED: LIDOCAINE 1% (10MG/ML) FOR IV START INTRADERMA PRN (06:06)
[2021-12-16] MEDS ORDERED: HYDROmorphone 0.5 MG/0.5 ML SYRINGE IVP PRN (07:00)
[2021-12-16] MEDS ORDERED: METOCLOPRAMIDE 5 MG/ML 2 ML VIAL IVP PRN (07:00)
[2021-12-16 09:12] LABS: Basophils % (A) 1 %; Eosinophils # (A) 0.2 k/uL (0-0.7); Eosinophils % (A) 4 %; HGB 11.5 gm/dL (11.4-16.0); Hypochromasia Marked; Lymphocytes # (A) 1.7 k/uL (1.0-4.8); Lymphocytes % (A) 38 %; Mean Platelet Volume 6.7; Microcytosis Moderate; Monocytes # (A) 0.2 k/uL (0-1.0); Monocytes % (A) 5 %; Neutrophils # (A) 2.1 k/uL (1.3-7.7); Neutrophils % (A) 49 %; Platelet Count 255 k/uL (150-450); RBC 5.21 m/uL (3.80-5.40); RDW 15.3 % (11.5-15.5); WBC 4.4 k/uL (3.8-10.6)
[2021-12-16 09:23] LABS: African American GFR (CKD) >90 (>60 ml/min/1.73 sqM); Anion Gap 8 mmol/L; Blood Urea Nitrogen 18 mg/dL (7-17); Calcium 9.1 mg/dL (8.4-10.2); Carbon Dioxide 27 mmol/L (22-30); Chloride 105 mmol/L (98-107); Glucose 104 mg/dL (74-99); Non-African American GFR(CKD) 82 (>60 ml/min/1.73 sqM); Potassium 4.2 mmol/L (3.5-5.1); Sodium 140 mmol/L (137-145)
--- NOTE | 2021-12-16 10:46 | P.PN ---
Subjective Patient was examined at bedside today not complaining of any worsening symptomatology. She is scheduled for urologic procedure today. Case discussed with RN as well. One-to-one sitter present at bedside. Objective - Vital Signs Vital signs: Vital Signs Temp 98.3 F 12/16/21 04:45 Pulse 72 12/16/21 04:45 Resp 20 12/16/21 04:45 BP 101/67 12/16/21 04:45 Pulse Ox 93 L 12/16/21 04:45 Intake & Output 12/15/21 12/16/21 12/16/21 18:59 06:59 18:59 Intake Total 850 100 Balance 850 100 Intake: Intake, IV Titration 50 100 Amount cefTRIAXone 1 gm In 50 100 Sodium Chloride 0.9% 50 ml @ 100 mls/hr IVPB Q24H [facility] Rx#:[id number] Oral 800 Other: Voiding Method Toilet Toilet # Voids 3 - Exam Constitutional: No acute distress, conversant, pleasant Eyes: Anicteric sclerae, moist conjunctiva, Pupils equal round reactive to light ENMT: NC/AT Oropharynx clear, no erythema, or exudates Neck: Supple, no masses, or JVD No carotid bruits No thyromegaly Lungs: Clear to auscultation Clear to percussion Normal respiratory effort, no accessory muscle use Cardiovascular: Heart regular in rate and rhythm, No murmurs, gallops, or rubs No peripheral edema Abdominal: Soft, tenderness to tapping of the left costovertebral angle Nontender, no guarding, rebound or rigidity Abdomen moving with respiration Extremities: No digital cyanosis No clubbing Pedal pulses intact and symmetrical Radial pulses intact and symmetrical No calf tenderness - Labs CBC & Chem 7: 12/16/21 08:30 12/16/21 08:30 Labs: Abnormal Lab Results - Last 24 Hours (Table) 12/15/21 12/16/21 12/16/21 Range/Units 06:55 08:30 08:30 MCV 71.0 L (80.0-100.0) fL MCH 22.0 L (25.0-35.0) pg Neutrophils # 1.67 L (1.80-7.70) X 10*3/uL BUN 18 H (7-17) mg/dL Glucose 104 H (74-99) mg/dL Microbiology - Last 24 Hours (Table) 12/13/21 22:55 Urine Culture - Final Urine,Voided Assessment and Plan Assessment: Assessment: #1 intractable abdominal pain secondary to nephrolithiasis #2 active suicidal ideation/depression #3 microcytic anemia #4 urinary tract infection Plan: -Admit to medicine for close monitoring -Suicidal precautions/one-to-one sitter -Psychiatry on board recommending inpatient psychiatric unit once patient is medically stable -Patient will undergo urologic procedure today. Pending further recommendations from the service. -Urine culture reviewed continue with IV Rocephin -DVT prophylaxis Disposition despite discharge once evaluated by urology and cleared. Patient will be discharged to inpatient psych. Patient cannot leave AMA as per psych.
[2021-12-16] MEDS: CITALOPRAM HYDROBROMIDE 10 MG TAB PO SCH (11:31)
[2021-12-16] MEDS: MORPHINE SULFATE 4 MG/ML SYRINGE IVP PRN (11:40)
--- NOTE | 2021-12-16 14:55 | P.PN ---
Subjective Progress Note Date: 12/16/21 She continues to have pain this morning, denies any nausea or vomiting. indicates pain is radiating down from flank to the left lower quadrant Objective - Vital Signs Vital signs: Vital Signs Temp 97.6 F 12/16/21 11:34 Pulse 67 12/16/21 11:34 Resp 18 12/16/21 11:34 BP 115/73 12/16/21 11:34 Pulse Ox 97 12/16/21 11:34 Intake & Output 12/15/21 12/16/21 12/16/21 18:59 06:59 18:59 Intake Total 850 100 Balance 850 100 Intake: Intake, IV Titration 50 100 Amount cefTRIAXone 1 gm In 50 100 Sodium Chloride 0.9% 50 ml @ 100 mls/hr IVPB Q24H [facility] Rx#:[id number] Oral 800 Other: Voiding Method Toilet Toilet Toilet # Voids 3 - Constitutional General appearance: Present: no acute distress - Gastrointestinal General gastrointestinal: Present: soft. Absent: distended - Psychiatric Psychiatric: Present: A&O x's 3 - Labs CBC & Chem 7: 12/16/21 08:30 12/16/21 08:30 Labs: Abnormal Lab Results - Last 24 Hours (Table) 12/16/21 12/16/21 Range/Units 08:30 08:30 MCV 71.0 L (80.0-100.0) fL MCH 22.0 L (25.0-35.0) pg BUN 18 H (7-17) mg/dL Glucose 104 H (74-99) mg/dL Microbiology - Last 24 Hours (Table) 12/13/21 22:55 Urine Culture - Final Urine,Voided Assessment and Plan Assessment: This is a 51-year-old female admitted to the hospital with left-sided flank pain and psychiatrist also consulted for major depression. Has been having pe rsistent flank pain since admission. Discussed given her persistent pain the option of left-sided ureteroscopy with holmium laser. Discussed the risk and the benefit of the procedure in detail. She is agreeable to proceed. -OR today for left-sided ureteroscopy with holmium laser lithotripsy, stone basketing and stent insertion
[2021-12-16] MEDS ORDERED: LACTATED RINGERS 1,000 ML IV ONE (15:15)
[2021-12-16] MEDS ORDERED: DEXAMETHASONE SOD PHOSPHATE 4 MG/ML 1 ML VIAL IVP ONE (15:31)
[2021-12-16] MEDS ORDERED: MIDAZOLAM 2 MG/2 ML VIAL ONE (16:08)
[2021-12-16] MEDS ORDERED: fentaNYL (PF) 50 MCG/ML 2 ML AMP ONE (16:08)
[2021-12-16] MEDS ORDERED: LIDOCAINE 1% INJ 10MG/ML (20 ML MDV) ONE (16:08)
[2021-12-16] MEDS ORDERED: PROPOFOL 10 MG/ML 20 ML VIAL IV ONE (16:08)
[2021-12-16] MEDS ORDERED: IOPAMIDOL-370 50ML BTL IRRIGATION ONE (16:52)
--- NOTE | 2021-12-16 17:17 | P.OP ---
Date of Procedure: 12/16/21 Preoperative Diagnosis: Left ureteral, renal stone Postoperative Diagnosis: Left renal stone Procedure(s) Performed: Cystoscopy, left ureteroscopy, retrograde pyelogram, holmium laser lithotripsy Implants: None Anesthesia: AILINA Surgeon: Marc Saravia Estimated Blood Loss (ml): 5 Pathology: none sent Condition: stable Disposition: PACU Indications for Procedure: This is a 51-year-old female admitted to the hospital with left-sided flank pain and psychiatrist also consulted for major depression. Has been having persistent flank pain since admission. Had CT done at [facility] that showed evidence of a distal ureteral stone, and left renal stone Discussed given her persistent pain the option of left-sided ureteroscopy with holmium laser. Discussed the risk and the benefit of the procedure in detail. She is agreeable to proceed. Description of Procedure: Patient was brought to the operating room, general anesthesia was induced. She was prepped and draped in sterile fashion and placed in dorsal lithotomy position. Cystoscopy fitted with 21-Mozambican sheath was inserted per urethra, cystoscopy was performed showed no abnormality within the bladder. Next a semirigid ureteroscope was inserted and advanced up the left ureteral orifice, of note the left ureteral orifice was dilated. The ureteroscope was advanced all the way up to the proximal ureter which showed no evidence of stone, but of note the ureter was dilated consistent with a recently passed stone. Next pullback ureteroscopy was performed showed no evidence of stone or injury to the ureter. As the ureteroscope was withdrawn and a sensor was advanced through. Next a 1113 Mozambican access sheath was passed over the wire and into the proximal ureter under fluoroscopy. Next a flexible ureteroscope was inserted through the access sheath, renoscopy was performed which showed evidence of a small stone within the upper pole that was dusted, and no additional stones. Retrograde pyelogram was performed to ensure all the calyces were evaluated. Pullback ureteroscopy was performed which showed no injury to the kidney or to the ureter, there was no evidence of any stones. The bladder was emptied at the end of the case. Patient tolerated procedure was taken to recovery in stable condition
[2021-12-16] MEDS ORDERED: METOCLOPRAMIDE 5 MG/ML 2 ML VIAL IVP ONE (17:30)
--- NOTE | 2021-12-16 17:31 | FL ---
EXAMINATION TYPE: FL urography retrograde DATE OF EXAM: 12/16/2021 COMPARISON: NONE HISTORY: Left ureteral calcification TECHNIQUE: Standard protocol. FINDINGS: Fluoroscopic guidance was provided during procedure performed by Dr. Johnson. A total of 7.5 seconds of fluoroscopic time was utilized during the procedure and a spot image was acquired. Ple ase refer to the intraprocedural clinical note for details. IMPRESSION: FL urography retrograde
[2021-12-16] MEDS ORDERED: HYDROmorphone 0.5 MG/0.5 ML SYRINGE IVP ONE (17:45)
[2021-12-16 17:50] LABS: Glucose,Whole Blood 161 mg/dL (75-99)
[2021-12-16] MEDS: LACTATED RINGERS 1,000 ML IV SCH (19:46)
[2021-12-16] MEDS: QUEtiapine 50 MG TAB PO SCH (20:14)
[2021-12-16 21:08] LABS: Glucose,Whole Blood 174 mg/dL (75-99)
[2021-12-17] MEDS: HEPARIN SODIUM,PORCINE/PF 5,000 UNIT/0.5 ML SYRINGE SQ SCH ×3 (00:09→16:05)
[2021-12-17] MEDS: MORPHINE SULFATE 4 MG/ML SYRINGE IVP PRN (00:17)
[2021-12-17] MEDS: ONDANSETRON 4 MG/2 ML VIAL IVP PRN (00:17)
[2021-12-17] MEDS: LACTATED RINGERS 1,000 ML IV SCH (06:01)
[2021-12-17 08:53] LABS: Basophils % (A) 0 %; Eosinophils % (A) 0 %; HCT 37.6 % (34.0-46.0); HGB 11.3 gm/dL (11.4-16.0); Hypochromasia Moderate; Lymphocytes # (A) 1.1 k/uL (1.0-4.8); Lymphocytes % (A) 13 %; MCH 21.4 pg (25.0-35.0); MCHC 30.1 g/dL (31.0-37.0); Mean Platelet Volume 7.7; Microcytosis Moderate; Monocytes # (A) 0.3 k/uL (0-1.0); Monocytes % (A) 3 %; Neutrophils # (A) 7.1 k/uL (1.3-7.7); Neutrophils % (A) 83 %; Platelet Count 281 k/uL (150-450); RDW 15.1 % (11.5-15.5); WBC 8.5 k/uL (3.8-10.6)
[2021-12-17 09:20] LABS: Calcium 8.9 mg/dL (8.4-10.2); Potassium 4.2 mmol/L (3.5-5.1)
[2021-12-17 09:24] VITALS: RESP 16
[2021-12-17] MEDS: CITALOPRAM HYDROBROMIDE 10 MG TAB PO SCH (09:25)
--- NOTE | 2021-12-17 11:35 | P.CRDCN ---
History of Present Illness History of present illness: HISTORY OF PRESENTING ILLNESS This is a pleasant 51-year-old female past medical history significant for nephrolithiasis, depression, anxiety, PTSD, methamphetamine abuse, hypertension. She does not follow with a principal solutions architect. We have been asked to see in consultation for bradycardia. Patient initially presented to the emergency department on 12/14/2021 with complaints of suicidal ideation and left flank pain, hematuria. Patient apparently initially presented to [facility] with bilateral flank pain and was diagnosed with bilateral nonobstructive kidney stones. Urology was consulted. On 12/16/21 patient underwent left ureteroscopy and cystoscopy, per operative report it revealed left ureter was dilated consistent with a recently passed stone, small left renal stone, no injury to the kidney or ureter, no evidence of any other stones. On 12/16/21, around 5:30pm, patient complained of feeling nauseated, she states when she stood up after surgery she felt lightheaded and had some dizziness. RN noted patient to be pale and clammy, RN noted heart rate to be decreased in the mid 40s. This lasted for about a few minutes per patient. EKG was obtained, patient was transferred to [facility] for telemetry monitoring. No syncope, no loss of consciousness. Patient denies any chest pain, any further lightheadedness or dizziness improved since last night, palpitations. She denies any history of CAD, MS, Stroke, Diabetes. She does endorse history of hypertension, not currently on antihypertensives. She states the women in her family have a history of heart disease but she is unsure of specifics. She is currently homeless. DIAGNOSTICS EKG reveals sinus bradycardia, heart rate 47, right bundle-branch block, left axis deviation. No prior EKG to compare Telemetry tracings indicate sinus mechanism heart rates in the 60s80s. 12/16 overnight on 8 PM patient did have heart rates in the 50s. No significant bradycardia or arrhythmia noted KUB xray report with no acute abdominal abnormality Ultrasound Renal report with no renal mass, stones or obstruction seen Laboratory reviewed, yesterday WBC 4.4, hemoglobin 11.5, platelets 255, sodium 140, potassium 4.2, BUN 18, serum trend 0.8 Current medications include ceftriaxone, Celexa, subcu heparin, IV fluids, when necessary morphine, when necessary Zofran, Seroquel REVIEW OF SYSTEMS At the time of my exam: CONSTITUTIONAL: Denies fever or chills. CARDIOVASCULAR: Denies chest pain, shortness of breath, orthopnea, PND or palpitations. RESPIRATORY: Denies cough. GASTROINTESTINAL: Denies abdominal pain, diarrhea, constipation, nausea or vomiting. MUSCULOSKELETAL: +lower back pain NEUROLOGIC: Denies numbness, tingling, headacbe or weakness. ENDOCRINE: Denies fatigue, weight change, polydipsia or polyurina. GENITOURINARY: Denies burning, hematuria or urgency with micturation. HEMATOLOGIC: Denies history of anemia or bleeding. PHYSICAL EXAMINATION Blood pressure 134/87, heart rate 89. Temp 99.1, oxygen saturation is 97% on room air CONSTITUTIONAL: No apparent distress. HEENT: Head is normocephalic. Pupils are equal, round. Sclerae anicteric. Mucous membranes of the mouth are moist. No JVD. No carotid bruit. CHEST EXAMINATION: Lungs are clear to auscultation. No chest wall tenderness is noted on palpation or with deep breathing. HEART EXAMINATION: Regular rate and rhythm. S1, S2 heard. No murmurs, gallops or rub. ABDOMEN: Soft, nontender. Positive bowel sounds. EXTREMITIES: 2+ peripheral pulses, no lower extremity edema and no calf tenderness. NEUROLOGIC EXAMINATION: Patient is awake, alert and oriented x3. ASSESSMENT Sinus bradycardia, likely vasovagal in etiology Right bundle branch block Status post patient underwent left ureteroscopy and cystoscopy 12/16/21 Left flank pain Nephrolithiasis Depression Anxiety PTSD History of methamphetamine abuse History of hypertension PLAN No further inpatient workup indicated at this time from a cardiology perspective. Likely bradycardic due to vasovagal. We will follow the patient as needed. Please reach out with any further questions or concerns Nurse practitioner note has been reviewed by physician. Signing provider agrees with the documented findings, assessment, and plan of care. Past Medical History Past Medical History: Hypertension, Renal Disease Additional Past Medical History / Comment(s): Past kidney stones, UTIs, gastric ulcer/hematemesis as a child, low back pain worse with standing. History of Any Multi-Drug Resistant Organisms: None Reported Past Surgical History: Orthopedic Surgery, Tubal Ligation Additional Past Surgical History / Comment(s): Surgery for kidney stones, L knee arthroscopic surgery Past Anesthesia/Blood Transfusion Reactions: No Reported Reaction Smoking Status: Never smoker - Past Family History Mother Family Medical History: COPD Additional Family Medical History / Comment(s): Mother is living, pt does not speak much to her. Father Additional Family Medical History / Comment(s): Father in a MVA. Medications and Allergies Home Medications Medication Instructions Recorded Confirmed Type No Known Home Medications 12/14/21 12/14/21 History Allergies Allergy/AdvReac Type Severity Reaction Status Date / Time codeine Allergy Rash/Hives Verified 12/14/21 06:28 Physical Exam Vitals: Vital Signs Temp Pulse Pulse Resp BP BP Pulse Ox 12/17/21 04:35 99.1 F 89 18 134/87 97 12/17/21 00:10 97.8 F 76 20 149/86 92 L 12/16/21 19:45 97.2 F L 57 L 18 137/84 95 12/16/21 19:30 50 L 17 150/76 97 12/16/21 19:00 48 L 16 144/74 98 12/16/21 18:45 50 L 16 151/69 100 12/16/21 18:30 52 L 16 150/84 100 12/16/21 18:15 46 L 16 135/80 100 12/16/21 18:00 50 L 18 128/71 99 12/16/21 17:45 52 L 16 154/71 99 12/16/21 17:35 55 L 16 150/71 96 12/16/21 17:30 50 L 16 125/60 96 12/16/21 17:20 48 L 16 113/57 96 12/16/21 17:05 63 63 14 138/70 93 L 12/16/21 15:22 97.5 F L 69 16 153/73 100 12/16/21 11:34 97.6 F 67 18 115/73 97 Intake and Output 12/16/21 12/17/21 12/17/21 22:59 06:59 14:59 Intake Total 500 Output Total 101 500 Balance 399 -500 Intake: IV 500 Output: Urine 100 500 Estimated Blood Loss 1 Other: Voiding Method Toilet Toilet # Voids 1 1 Results 12/17/21 08:25 12/17/21 08:25 CBC 12/16/21 Range/Units 08:30 WBC 4.4 (3.8-10.6) k/uL RBC 5.21 (3.80-5.40) m/uL Hgb 11.5 (11.4-16.0) gm/dL Hct 37.0 (34.0-46.0) % Plt Count 255 (150-450) k/uL Comprehensive Metabolic Panel 12/16/21 Range/Units 08:30 Sodium 140 (137-145) mmol/L Potassium 4.2 (3.5-5.1) mmol/L Chloride 105 (98-107) mmol/L Carbon Dioxide 27 (22-30) mmol/L BUN 18 H (7-17) mg/dL Creatinine 0.83 (0.52-1.04) mg/dL Glucose 104 H (74-99) mg/dL Calcium 9.1 (8.4-10.2) mg/dL Current Medications Generic Name Dose Route Start Last Admin Trade Name Freq PRN Reason Stop Dose Admin Acetaminophen 650 mg 12/14/21 19:50 12/14/21 20:00 Acetaminophen Tab 325 Mg Tab PO 650 mg Q4HR PRN Administration Fever and/ or Pain Citalopram Hydrobromide 10 mg 12/15/21 09:00 12/16/21 11:31 Citalopram Hydrobromide 10 Mg Tab PO Not Given DAILY ANN Heparin Sodium (Porcine) 5,000 unit 12/14/21 08:00 12/17/21 00:09 Heparin Sodium,Porcine/Pf 5,000 Unit/0.5 Ml Syringe SQ 5,000 unit Q8HR ANN Administration Ceftriaxone Sodium 1 gm/ 50 mls @ 100 mls/hr 12/15/21 01:00 12/17/21 00:09 Sodium Chloride IVPB 100 mls/hr Q24H ANN Administration Protocol Lactated Ringer's 1,000 mls @ 20 mls/hr 12/16/21 06:06 12/17/21 06:01 Lactated Ringers IV Not Given .Q24H ANN Lidocaine HCl 0.1 ml 12/16/21 06:06 Lidocaine 1% (10mg/Ml) For Iv Start INTRADERMA PER PROTOCOL PRN IV Start Morphine Sulfate 4 mg 12/14/21 01:01 12/17/21 00:17 Morphine Sulfate 4 Mg/Ml Syringe IVP 4 mg Q4HR PRN Administration Pain Naloxone HCl 0.2 mg 12/14/21 00:49 Naloxone 0.4 Mg/Ml 1 Ml Vial IV Q2M PRN Opioid Reversal Ondansetron HCl 4 mg 12/14/21 00:49 12/17/21 00:17 Ondansetron 4 Mg/2 Ml Vial IVP 4 mg Q8HR PRN Administration Nausea And Vomiting Quetiapine Fumarate 50 mg 12/14/21 21:00 12/16/21 20:14 Quetiapine 50 Mg Tab PO 50 mg HS ANN Administration Intake and Output 12/16/21 12/17/21 12/17/21 22:59 06:59 14:59 Intake Total 500 Output Total 101 500 Balance 399 -500 Intake: IV 500 Output: Urine 100 500 Estimated Blood Loss 1 Other: Voiding Method Toilet Toilet # Voids 1 1 12/16/21 08:30 12/16/21 08:30
--- NOTE | 2021-12-17 12:17 | P.PN ---
Subjective Progress Note Date: 12/17/21 status post left-sided ureteroscopy with holmium laser no acute overnight events, still having some left flank pain, denies any nausea or vomiting Objective - Vital Signs Vital signs: Vital Signs Temp 98.2 F 12/17/21 12:00 Pulse 87 12/17/21 12:00 Resp 16 12/17/21 12:00 BP 117/73 12/17/21 12:00 Pulse Ox 97 12/17/21 12:00 Intake & Output 12/16/21 12/17/21 12/17/21 18:59 06:59 18:59 Intake Total 500 120 Output Total 1 600 Balance 499 -600 120 Intake: IV 500 Oral 120 Output: Urine 600 Estimated Blood Loss 1 Other: Voiding Method Toilet Toilet Toilet # Voids 1 - Constitutional General appearance: Present: no acute distress - Gastrointestinal General gastrointestinal: Present: distended, soft. Absent: tenderness - Psychiatric Psychiatric: Present: A&O x's 3 - Labs CBC & Chem 7: 12/17/21 08:25 12/17/21 08:25 Labs: Abnormal Lab Results - Last 24 Hours (Table) 12/16/21 12/16/21 12/17/21 Range/Units 17:39 21:07 08:25 Hgb 11.3 L (11.4-16.0) gm/dL MCV 71.0 L (80.0-100.0) fL MCH 21.4 L (25.0-35.0) pg MCHC 30.1 L (31.0-37.0) g/dL BUN (7-17) mg/dL Glucose (74-99) mg/dL POC Glucose (mg/dL) 161 H 174 H (75-99) mg/dL 12/17/21 Range/Units 08:25 Hgb (11.4-16.0) gm/dL MCV (80.0-100.0) fL MCH (25.0-35.0) pg MCHC (31.0-37.0) g/dL BUN 18 H (7-17) mg/dL Glucose 193 H (74-99) mg/dL POC Glucose (mg/dL) (75-99) mg/dL Assessment and Plan Assessment: This is a 51-year-old female admitted to the hospital with left-sided flank pain and psychiatrist also consulted for major depression. underwent left-sided ureteroscopy with holmium laser lithotripsy yesterday, no evidence of ureteral stone at that time, only some evidence of a small left renal stone that was dusted. flank pain is expected post ureteroscopy -okay for discharge from urology standpoint, she can follow-up in urology on an as-needed basis
--- NOTE | 2021-12-17 14:48 | P.DS ---
Providers Date of admission: 12/15/21 18:48 Attending physician: Devang Johnson MD Consults: 12/14/21 00:50 Consult Physician Routine Consulting Provider: Roni Thorne Consult Reason/Comments: suicidal ideations Do you want consulting provider notified?: Already Contacted 12/14/21 02:34 Consult Physician Routine Consulting Provider: William Del Toro Consult Reason/Comments: Kidney stones Do you want consulting provider notified?: Yes, Notify in am 12/16/21 17:59 Consult Physician Routine Consulting Provider: Byron Johnson Consult Reason/Comments: POSSIBLE WITHDRAWL Do you want consulting provider notified?: Already Contacted 12/16/21 18:30 Consult Physician Routine Consulting Provider: Yang Drake Consult Reason/Comments: SYMPTOMATIC BRADYCARDIA NEW BIFASICULAR BLOCK Do you want consulting provider notified?: Yes Primary care physician: Stated None Hospital Course: 51-year-old female with history of kidney stones Patient comes in complaining of severe bilateral flank pain worse on the left side she has history of kidney stones a few days ago she was diagnosed with new bilateral kidney stones with no obstruction no obstructive uropathy. She reports hematuria denies any fevers or chills reports very sharp severe pain 10 out of 10 over the left flank radiating to the groin patient also claims that she is homeless she moved recently from [place] to stay with friends who has kicked her out since then she's been homeless with poor access to care doesn't take any medications she does have history of depression and anxiety and PTSD however she's been off medications for a while. Otherwise she denies any tobacco smoking or heavy alcohol use. She admits to methamphetamine last was a few days ago Patient went to a different facility a few days ago [facility] where imaging was done confirmed bilateral kidney stones no obstructive uropathy in the ED blood work showed microcytic anemia. Urine analysis was a contaminated sample Otherwise patient denies any nausea vomiting denies any chest pain or trouble breathing She was getting very frustrated with her quality of life and today presented to the ED complaining of depression and suicidal ideation Patient was independently evaluated by urology underwent cystoscopy, left ureteroscopy, retrograde pyelogram and laser lithotripsy. Patient was evaluated by urology again today. She is okay to be discharged from their perspective. She does not complain of any abdominal discomfort, fever or chills. We will transition over to oral antibiotics to complete 7 days. Cardiology was consulted due to bradycardia. She has been evaluated by cardiology no recommendations from the service there okay to P discharge today. Patient denies any chest pain, shortness of breath or palpitations. Vital signs are reviewed and stable. Patient was also evaluated by psychiatry. They have deemed her to be admitted to the inpatient psych given her medical condition. Patient cannot leave AGAINST MEDICAL ADVICE as per the recommendations. Patient is agreeable to be discharged to inpatient psych unit. Case discussed with case management. Patient Condition at Discharge: Stable Plan - Discharge Summary Discharge Rx Participant: No New Discharge Prescriptions: New Citalopram Hydrobromide [CeleXA] 10 mg PO DAILY tab QUEtiapine [SEROquel] 50 mg PO HS tab Cefpodoxime Proxetil [Vantin] 100 mg PO Q12HR 5 Days #10 tab Discharge Medication List Cefpodoxime Proxetil [Vantin] 100 mg PO Q12HR 5 Days #10 tab 12/17/21 [Rx] Citalopram Hydrobromide [CeleXA] 10 mg PO DAILY tab 12/17/21 [Rx] QUEtiapine [SEROquel] 50 mg PO HS tab 12/17/21 [Rx] Follow up Appointment(s)/Referral(s): None,Stated [Primary Care Provider] - 1-2 days Victor Hugo Covington MD [Medical Doctor] - 1 Week Marc Saravia MD [STAFF PHYSICIAN] - 1 Week Armin Johnson DO [STAFF PHYSICIAN] - 1 Week Discharge Disposition: TRANSFER TO PSYCH HOSP/UNIT
[2021-12-17 16:04] VITALS: BP 99/61; PULSE 85; TEMP 97.9
== END 2021-12-17 20:05 | DRG 694 ==
LOC: EC 21:23 → 5NMEDONC 12-14 00:49 → 6NMEDSUR 12-14 02:54 → 5NMEDONC 12-14 15:08 → OBSVTOIN 12-15 18:48 → 3SCARD 12-16 19:09
PROVIDERS: ADMIT Internal Medicine; ATTEND Internal Medicine
PROC: 0TC18ZZ Extirpation of Matter from Left Kidney, Via Natural or Artificial Opening Endoscopic (ICD-10-PCS; principal; 2021-12-16 07:30)
PROC: BT1F1ZZ Fluoroscopy of Left Kidney, Ureter and Bladder using Low Osmolar Contrast (ICD-10-PCS; principal; 2021-12-16 07:30)
DX: N20.0 Calculus of kidney (principal); R45.851 Suicidal ideations; F33.2 Major depressive disorder, recurrent severe without psychotic features; N39.0 Urinary tract infection, site not specified; I45.2 Bifascicular block; F15.10 Other stimulant abuse, uncomplicated; D50.9 Iron deficiency anemia, unspecified; F43.10 Post-traumatic stress disorder, unspecified; I10 Essential (primary) hypertension; R00.1 Bradycardia, unspecified; M54.50 Low back pain, unspecified; R31.0 Gross hematuria; G47.00 Insomnia, unspecified; Z87.442 Personal history of urinary calculi; Z59.00 Homelessness unspecified; Z87.11 Personal history of peptic ulcer disease; Z98.51 Tubal ligation status; Z87.39 Personal history of other diseases of the musculoskeletal system and connective tissue; Z98.890 Other specified postprocedural states; Z56.0 Unemployment, unspecified; Z88.5 Allergy status to narcotic agent; Z82.5 Family history of asthma and other chronic lower respiratory diseases; Z81.4 Family history of other substance abuse and dependence
CPT/HCPCS: 36415; 74018; 74420; 76770; 80048; 80053; 80306; 81001; 82075; 82150; 83690; 84703; 85025; 87086; 93005; 96361; 96365; 96372; 96375; 96376; 99285

== ENCOUNTER 2021-12-17 17:31 | Inpatient (IN) | payer MEDICAID, OTHER ==
[2021-12-17] MEDS ORDERED: MAGNESIUM HYDROXIDE 2,400 MG/10 ML CUP PO PRN (17:57)
[2021-12-17] MEDS ORDERED: HALOPERIDOL LACTATE 5 MG/ML 1 ML VIAL IM PRN (17:57)
[2021-12-17] MEDS ORDERED: MAG HYDROX/AL HYDROX/SIMETH 30 ML CUP PO PRN (17:57)
[2021-12-17] MEDS ORDERED: hydrOXYzine pamoate 25 MG CAP PO PRN (18:05)
[2021-12-17] MEDS ORDERED: haloperidoL 1 MG TAB PO PRN (18:06)
[2021-12-17] MEDS: QUEtiapine 50 MG TAB PO SCH (21:24)
[2021-12-18] MEDS: CITALOPRAM HYDROBROMIDE 10 MG TAB PO SCH (08:29)
[2021-12-18 08:58] LABS: Chol/HDL Ratio 3.87 Ratio; LDL Cholesterol,Calculated 111.6 mg/dL (0.0-131.0)
--- NOTE | 2021-12-18 11:34 | P.HP ---
Psychiatric H&P - . H&P Date: 12/18/21 History & Physical: Allergies Allergy/AdvReac Type Severity Reaction Status Date / Time codeine Allergy Rash/Hives Verified 12/17/21 20:21 Vital Signs Temp 98.0 F 12/17/21 20:10 Pulse 99 12/18/21 08:28 Resp 18 12/17/21 20:10 BP 105/76 12/18/21 08:28 Pulse Ox 97 12/17/21 20:10 Intake & Output 12/17/21 12/18/21 12/18/21 18:59 06:59 18:59 Weight 90.71 kg 98.7 kg Laboratory Last Values Estimated Ave Glu mg/dL 139 12/17/21 08:25 Hemoglobin A1c 6.5 % (0.0-6.0) H 12/17/21 08:25 Triglycerides 113.00 mg/dL (0.00-149.00) 12/17/21 08:25 Cholesterol 181.00 mg/dL (0.00-200.00) 12/17/21 08:25 LDL Cholesterol, Calc 111.6 mg/dL (0.0-131.0) 12/17/21 08:25 VLDL Cholesterol, Calc 22.60 mg/dL (5.00-40.00) 12/17/21 08:25 HDL Cholesterol 46.80 mg/dL (40.00-60.00) 12/17/21 08:25 Cholesterol/HDL Ratio 3.87 Ratio 12/17/21 08:25 12/18/21 11:29 Psychiatric evaluation: This is a psychiatry evaluation on Manuela Bell who is a 51-year-old female and was hospitalized for suicidal ideations Patient admits that he was just a thought and that she has never really attempted to herself in the past or at this time Patient states that she had a fallout with one of her friends who initially had convinced her to come here from [place] for a job She says that she did eventually get a job but that the friend refused to give her a ride where she ended up losing her work She states that the friend wanted her to stay with her all the time and give her company She said that she had no intention of doing that and that she wanted to keep busy She states that she was living in [place] but had no resources there 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 She says that prior to that she was living in [place] for over 20 years when she was with her ex- She denies that she has that any psychiatric follow-up or treatment but then later stated that she does take Seroquel and Celexa from her primary care physic pati She states that she was taking too much of Seroquel and that it makes her sleepy and would like to have reduced from 200 mg She does not know the dosage of Celexa Past history personal social history as described above Patient remains somewhat of a disorganized vague historian Patient reports that she has 2 kids that are older brother has nothing to do with her She states that she is currently homeless but would be comfortable if summary mincer made for her to go into a jail or any other placement She denies any alcohol or substance use Mental status examination reveals a well built female who currently appears in no acute physical distress Patient is alert and oriented to time place and person Speech is clear and coherent and relevant Thought processes are goal-directed sequential and logical Patient denies any suicidal or homicidal ideations Cognitively patient appears to be intact Patient's formal and operational judgment appears to be fair Patient's insight into her problem is fair Diagnostic impression: Adjustment disorder unspecified Mood disorder mild Relationship problems Rule out personality disorder Plan: The patient at this time is not suicidal or homicidal and seems to have a situational issue related to her social situation Patient at this time is comfortable with any placement recommendations and wouldn't discuss with her clinical social worker regarding jail or any other arrangements for placement and support Meantime the patient will continue to participate in on the mora activities individual milieu group OT RT PT and pharmacotherapy Approximately the stay would be 2-5 days Eligio Haque M.D. 12/18/2021
[2021-12-18] MEDS: QUEtiapine 50 MG TAB PO SCH (20:46)
[2021-12-18] MEDS: ACETAMINOPHEN TAB 325 MG TAB PO PRN (20:47)
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
[2021-12-19] MEDS: CEFDINIR 300 MG CAP PO SCH ×3 (01:39→20:21)
[2021-12-19 07:09] VITALS: RESP 16
[2021-12-19] MEDS: CITALOPRAM HYDROBROMIDE 10 MG TAB PO SCH (08:12)
--- NOTE | 2021-12-19 09:54 | P.PN ---
Subjective Progress Note Date: 12/19/21 Principal diagnosis: Adjustment disorder with mixed emotional features Depressive disorder unspecified Rule out personality disorder unspecified Relationship problems Subjective data: I'm feeling okay although I feel tired I'm trying to catch up on my sleep I'm hopeful that they may be able to find something for me that will work Objective data: Patient is laying comfortably in bed at this time Patient seems to be resting most of the time Motivation for any therapy or interaction seems to be rather limited Patient stayed in this facility mostly appears to be related to secondary gain and her social situation Plan: We will discuss with the social security benefits interviewer regarding placement options Continue supportive care Continue parts patient in milieu treatment and improving coping skills Eligio Haque M.D. 12/19/21 Objective - Vital Signs Vital signs: Vital Signs Temp 97.3 F L 12/19/21 06:48 Pulse 57 L 12/19/21 06:48 Resp 16 12/19/21 06:48 BP 93/51 12/19/21 06:48 Pulse Ox 97 12/19/21 06:48 Intake & Output 12/18/21 12/19/21 12/19/21 18:59 06:59 18:59 Weight 97.7 kg
[2021-12-19] MEDS: ACETAMINOPHEN TAB 325 MG TAB PO PRN (17:10)
[2021-12-19] MEDS: QUEtiapine 50 MG TAB PO SCH (20:21)
[2021-12-20] MEDS: ACETAMINOPHEN TAB 325 MG TAB PO PRN (08:17)
[2021-12-20] MEDS: CEFDINIR 300 MG CAP PO SCH ×2 (08:17→20:59)
[2021-12-20] MEDS: CITALOPRAM HYDROBROMIDE 10 MG TAB PO SCH (08:17)
--- NOTE | 2021-12-20 14:03 | P.PN ---
Progress Note - Text Progress Note Date: 12/20/21 Interval History: Patient was seen resting in bed and was directable and agreeable to speak with teletypewriter operator in her room. I, the patient continues to endorse suicidal ideation and hopelessness she has been adherent with medications and is not reporting any significant side effects at this time. She denies any homicidal ideation. She reports no specific plan or intention to kill herself. She denies any auditory or visual hallucinations. She reports no paranoia or other delusions. Patient does have a significant history of substance abuse and was counseled on her methamphetamine use. She is not willing to go to rehabilitation at this time. She reports some difficulty with sleep however denies any issues regarding her appetite. Mental Status Exam: General Appearance: Patient appears to be stated age is alert, directable, and cooperative. Obese body habitus. Behavior: Patient is calmly seated without any agitated behavior. Eye contact is appropriate. Speech: Patient's speech is fluent and nonpressured. Mood/Affect: Mood is depressed, affect is congruent and constricted. Suicidality/Homicidality: Patient endorses suicidal ideation Perceptions: Patient denies any visual hallucinations and denies any auditory hallucinations Though content/process: There is no evidence of any delusional thought content and thought process is linear and goal-directed. Dysphoric. Memory and concentration: AOX3, grossly intact for the purposes of this session Judgment and insight: Improving mildly Vital Signs Temp 98 F 12/20/21 06:29 Pulse 74 12/20/21 06:29 Resp 16 12/20/21 06:29 BP 121/70 12/20/21 06:29 Pulse Ox 97 12/19/21 06:48 Intake & Output 12/19/21 12/20/21 12/20/21 18:59 06:59 18:59 Weight 97.7 kg Assessment Major depressive disorder, recurrent, severe Posttraumatic stress disorder Methamphetamine abuse Plan: -Patient continues to meet criteria for inpatient psychiatric admission for symptom stabilization and safety. Patient has signed adult voluntary form and medication consent and was placed in patient's chart. -Medications: Increase Celexa to 20 mg by mouth daily for depression/anxiety Increase Seroquel to 100 mg daily at bedtime for mood augmentation -When necessary Vistaril and Haldol for agitation/aggression. -SW on board for discharge planning. Encouraged the patient to participate in milieu.
[2021-12-20] MEDS: QUEtiapine 100 MG TAB PO SCH (20:59)
[2021-12-21] MEDS: CEFDINIR 300 MG CAP PO SCH ×2 (08:08→20:38)
[2021-12-21] MEDS: CITALOPRAM HYDROBROMIDE 20 MG TAB PO SCH (08:08)
--- NOTE | 2021-12-21 13:22 | P.PN ---
Progress Note - Text Progress Note Date: 12/21/21 Interval History: Patient was seen resting in bed and was directable and agreeable to speak with abstract writer in her room. Patient reports that she is feeling better today. She currently is denying any suicidal or homicidal ideation, intention, and/or plan. She is not reporting any auditory or visual hallucinations. She denies any paranoia or other delusions. Patient does express concerns about discharge however is future oriented and is desiring to go to rehabilitation. She is scheduled for an intake with [facility] tomorrow morning. The patient is agreeable with this plan. The patient has been adherent with her medications and is not reporting any significant side effects at this time. She denies any health issues or concerns. Mental Status Exam: General Appearance: Patient appears to be stated age is alert, directable, and cooperative. Obese body habitus. Behavior: Patient is calmly seated without any agitated behavior. Eye contact is appropriate. Speech: Patient's speech is fluent and nonpressured. Mood/Affect: Mood is feeling better, affect is congruent and euthymic. Suicidality/Homicidality: Patient denies any suicidal or homicidal ideation. Perceptions: Patient denies any visual hallucinations and denies any auditory hallucinations Though content/process: There is no evidence of any delusional thought content and thought process is linear and goal-directed. Future oriented. Memory and concentration: AOX3, grossly intact for the purposes of this session Judgment and insight: Improving mildly Vital Signs Temp 97.8 F 12/21/21 07:12 Pulse 92 12/21/21 07:12 Resp 16 12/20/21 06:29 BP 94/65 12/21/21 07:12 Pulse Ox 99 12/21/21 07:12 Assessment Major depressive disorder, recurrent, severe Posttraumatic stress disorder Methamphetamine abuse Plan: -Patient continues to meet criteria for inpatient psychiatric admission for symptom stabilization and safety. Patient has signed adult voluntary form and medication consent and was placed in patient's chart. She is scheduled for inpatient rehabilitation at [facility] tomorrow. -Medications: Celexa 20 mg by mouth daily for depression/anxiety Seroquel 100 mg daily at bedtime for mood augmentation -When necessary Vistaril and Haldol for agitation/aggression. -SW on board for discharge planning. Encouraged the patient to participate in milieu.
[2021-12-21] MEDS: QUEtiapine 100 MG TAB PO SCH (20:38)
[2021-12-22 07:08] VITALS: BP 100/64; PULSE 71; TEMP 97.7
[2021-12-22] MEDS: CEFDINIR 300 MG CAP PO SCH (08:10)
[2021-12-22] MEDS: CITALOPRAM HYDROBROMIDE 20 MG TAB PO SCH (08:10)
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
== END 2021-12-22 09:23 | disposition other institution (70) | DRG 885 ==
LOC: EDSTATUS 17:53 → 3MHU 20:09
PROVIDERS: ADMIT Psychiatry & Neurology Psychiatry; ATTEND Psychiatry & Neurology Psychiatry
DX: F33.2 Major depressive disorder, recurrent severe without psychotic features (principal); N39.0 Urinary tract infection, site not specified; E66.9 Obesity, unspecified; Z68.32 Body mass index [BMI] 32.0-32.9, adult; F15.10 Other stimulant abuse, uncomplicated; F43.10 Post-traumatic stress disorder, unspecified; F43.23 Adjustment disorder with mixed anxiety and depressed mood; I10 Essential (primary) hypertension; Z59.00 Homelessness unspecified; Z79.899 Other long term (current) drug therapy; Z82.5 Family history of asthma and other chronic lower respiratory diseases; Z87.442 Personal history of urinary calculi
CPT/HCPCS: 80061; 83036